=== PATIENT | female | born 2005 | race Caucasian/White ===

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

== ENCOUNTER 2023-02-06 12:44 | Emergency (ER) | payer OTHER ==
[2023-02-06 13:09] VITALS: BP 129/81; PULSE 71; RESP 16; TEMP 98.1; BMI 23.8
[2023-02-06 14:17] LABS: PH,URINE 5.5 (5.0-8.0); URINE APPEARANCE CLEAR; URINE BILIRUBIN NEGATIVE (NEGATIVE); URINE COLOR YELLOW; URINE GLUCOSE (UA) NEGATIVE (NEGATIVE); URINE KETONE NEGATIVE (NEGATIVE); URINE LEUK ESTERASE NEGATIVE (NEGATIVE); URINE NITRITE NEGATIVE (NEGATIVE); URINE PROTEIN NEGATIVE (NEGATIVE); URINE UROBILINOGEN 0.2 mg/dL (0.2-1.0)
[2023-02-06 14:18] LABS: HCG,QUALITATIVE URINE Negative
== END 2023-02-06 15:44 | disposition home or self-care (01) ==
LOC: JER 12:44
DX: R10.2 Pelvic and perineal pain (principal); N83.201 Unspecified ovarian cyst, right side
CPT/HCPCS: 76830-TC; 81003; 84703; 87086; 99284-25